=== PATIENT | male | born 1980 | race Two or more races ===

== ENCOUNTER 2017-01-09 20:23 | Emergency (ER) | payer MEDICAID ==
[2017-01-10 00:52] VITALS: BP 129/84
== END 2017-01-10 00:52 | disposition home or self-care (01) ==
LOC: ED 20:23
DX: S62.306A Unspecified fracture of fifth metacarpal bone, right hand, initial encounter for closed fracture (principal); S62.304A Unspecified fracture of fourth metacarpal bone, right hand, initial encounter for closed fracture; W18.39XA Other fall on same level, initial encounter; Y93.89 Activity, other specified; Y99.8 Other external cause status; Y92.89 Other specified places as the place of occurrence of the external cause
CPT/HCPCS: J2405; J3010; Q0092